=== PATIENT | male | born 1965 | race Caucasian/White ===

== ENCOUNTER 2019-07-13 06:11 | Day surgery (SDC) | payer OTHER, BC ==
[2019-07-12 16:40] VITALS: BMI 33.5
[2019-07-13] MEDS ORDERED: KETOROLAC TROMETHAMINE 30 MG/1 ML VIAL ONE ×2 (07:11→08:28)
[2019-07-13] MEDS ORDERED: DEXAMETHASONE SOD PHOSPHATE 4 MG/1 ML VIAL ONE (07:11)
[2019-07-13] MEDS ORDERED: PROPOFOL 20 ML ONE ×3 (07:12→07:13)
[2019-07-13] MEDS ORDERED: MIDAZOLAM HCL 2 MG/2 ML SINGLE DOSE VIAL ONE ×3 (07:12→07:31)
[2019-07-13] MEDS ORDERED: SUCCINYLCHOLINE CHLORIDE 200 MG/10 ML SYRINGE ONE (07:12)
[2019-07-13] MEDS ORDERED: ePHEDrine SULFATE 50 MG/1 ML AMPULE ONE (07:12)
[2019-07-13] MEDS ORDERED: ONDANSETRON 4 MG/2 ML VIAL IVPUSH PRN (07:40)
[2019-07-13] MEDS ORDERED: oxyCODONE HCL 5 MG TABLET PO PRN ×3 (07:40→08:51)
[2019-07-13] MEDS ORDERED: LACTATED RINGERS SOLUTION 1,000 ML IV SCH (07:45)
[2019-07-13] MEDS ORDERED: ceFAZolin SODIUM 1 GM VIAL IVPB ONE (07:53)
[2019-07-13] MEDS ORDERED: GENTAMICIN 80MG PREMIX BAG IVPB ONE (07:54)
[2019-07-13] MEDS ORDERED: FUROSEMIDE 40 MG/4 ML INJECTABLE VIAL ONE (08:07)
[2019-07-13] MEDS ORDERED: IOHEXOL 300 MG/ML INFUS..BTL IV ONE ×2 (08:26)
[2019-07-13] MEDS ORDERED: SODIUM CHLORIDE 0.9% P/F 10 ML VIAL IJ ONE (08:28)
[2019-07-13] MEDS ORDERED: ceFAZolin SODIUM 1 GM VIAL ONE (08:28)
[2019-07-13] MEDS ORDERED: GENTAMICIN SO4 80 MG/2 ML VIAL ONE (08:28)
--- NOTE | 2019-07-13 08:53 | OP ---
Operative Note - Note: Operative Date: 07/13/19 Pre-Operative Diagnosis: LK stone Post-Operative Diagnosis: Same as Pre-op Surgeon: Adalid Abdi Anesthesia: General Operative Report Dictated: Yes
[2019-07-13] MEDS ORDERED: ELECTROLYTE-148 SOLN 1,000 ML IV SCH (09:00)
--- NOTE | 2019-07-13 09:34 | OP ---
DATE OF OPERATION: 07/13/2019 PREOPERATIVE DIAGNOSIS: Large left kidney stone. POSTOPERATIVE DIAGNOSIS: Large left kidney stone. PROCEDURE: Cystoscopy, left ureteroscopy, laser lithotripsy, stent placement. SURGEON: Tri Garcia MD INDICATION: Patient is a 53-year-old male recently noted to have a 1.8-cm left kidney stone, taken to the OR for ureteroscopy, laser lithotripsy. After risks, benefits, and alternatives were discussed, patient elected to undergo the procedure. He was taken to the OR, placed supine on the operating table. After cardiac monitoring had been administered and general anesthesia established, he was prepped and draped in dorsal lithotomy position. He was given 2 g of Ancef and 1 mL of gentamicin. The cystoscope was introduced without difficulty. Anterior urethra was normal. Prostatic urethra was 3 cm and visually occlusive. The bladder was visualized. No tumors or stones noted in the bladder. Attention was turned to the left ureteral orifice. This was intubated with ureteral catheter. Contrast was injected for a retrograde pyelogram. There was mild hydronephrosis secondary to a radiolucent stone at the UPJ. So, the stone could not be seen on plain fluoroscopy, but when you gave contrast, you could see the large filling defect consistent with the stone. Guidewire was advanced into the left renal pelvis. Over the guidewire, a dual-lumen catheter was advanced, and a second guidewire was advanced as a safety wire. Over the working wire, a flexible ureteroscope was advanced into the renal pelvis, and the stone was visualized approximately 2 cm in size in the renal pelvis. Using the 365-micron laser fiber, the stone was pulverized into fine dust and 1- to 2-mm fragments until the entire stone burden was fragmented. Repeat ureteroscopy revealed no evidence of any residual large stone fragments within the renal pelvis or the calyces. Entire ureter was inspected. No stones were noted in the ureter either. Ureteroscope was then removed, and a 7-Slov[place], 24-cm, double-pigtail stent was then advanced in the monorail fashion. Fluoroscopy confirmed the stent to be in good position. Patient was awoken from anesthesia and transferred to recovery room in stable condition. There were no complications. Estimated blood loss was minimal. TRI GARCIA M.D. [id number]
[2019-07-13] MEDS ORDERED: oxyCODONE HCL 5 MG TABLET ONE (10:20)
[2019-07-13 10:54] VITALS: PULSE 70
[2019-07-13 12:01] VITALS: BP 130/70; TEMP 98
== END 2019-07-13 11:40 | disposition home or self-care (01) ==
LOC: JASU-SURG 06:11
PROVIDERS: ATTEND Urology
PROC: 0TF48ZZ Fragmentation in Left Kidney Pelvis, Via Natural or Artificial Opening Endoscopic (ICD-10-PCS; principal; 2019-07-13 08:00)
PROC: 0T778DZ Dilation of Left Ureter with Intraluminal Device, Via Natural or Artificial Opening Endoscopic (ICD-10-PCS; 2019-07-13 08:00)
DX: N20.0 Calculus of kidney (principal)
CPT/HCPCS: 76000-TC-FY; 94760

== ENCOUNTER 2020-03-12 06:04 | Day surgery (SDC) | payer OTHER, BC ==
[2020-03-11 13:50] VITALS: BMI 33.4
[2020-03-12] MEDS ORDERED: MIDAZOLAM HCL 2 MG/2 ML SINGLE DOSE VIAL ONE (07:33)
[2020-03-12] MEDS ORDERED: PROPOFOL 20 ML ONE ×3 (07:33)
[2020-03-12] MEDS ORDERED: SUCCINYLCHOLINE CHLORIDE 200 MG/10 ML SYRINGE ONE (07:33)
[2020-03-12] MEDS ORDERED: ceFAZolin SODIUM 1 GM VIAL IVPB ONE (07:50)
[2020-03-12] MEDS ORDERED: ceFAZolin SODIUM 1 GM VIAL ONE (07:51)
[2020-03-12] MEDS ORDERED: KETOROLAC TROMETHAMINE 30 MG/1 ML VIAL ONE (07:51)
[2020-03-12] MEDS ORDERED: DEXAMETHASONE SOD PHOSPHATE 4 MG/1 ML VIAL ONE (07:51)
[2020-03-12] MEDS ORDERED: oxyCODONE HCL 5 MG TABLET PO PRN (07:57)
[2020-03-12] MEDS ORDERED: LIDOCAINE HCL/PF 2% SDV 5ML VIAL ONE (07:58)
--- NOTE | 2020-03-12 07:59 | OP ---
Operative Note - Note: Operative Date: 03/12/20 Pre-Operative Diagnosis: LK stone Operation: ESWL Post-Operative Diagnosis: Same as Pre-op Surgeon: Adalid Abdi Anesthesia: General Operative Report Dictated: Yes
[2020-03-12] MEDS ORDERED: DEXTROSE 5%-0.45% SALINE 1,000 ML IV SCH (08:00)
[2020-03-12] MEDS ORDERED: KETAMINE HCL 200 MG/20 ML VIAL ONE (08:01)
[2020-03-12 09:32] VITALS: BP 146/80; PULSE 62; TEMP 97.5
--- NOTE | 2020-03-12 10:42 | OP ---
DATE OF OPERATION: 03/12/2020 PREOPERATIVE DIAGNOSIS: A 1-cm left kidney stone. POSTOPERATIVE DIAGNOSIS: A 1-cm left kidney stone. PROCEDURE: Extracorporeal shock wave lithotripsy (ESWL). SURGEON: Tri Garcia MD INDICATION: Patient is a 54-year-old male with history of recurrent nephrolithiasis. Recent imaging revealed a 1-cm stone in the left kidney. After review of treatment options, patient elected to undergo ESWL. Risks, benefits, alternatives were discussed. DESCRIPTION OF PROCEDURE: After informed consent was obtained, patient was taken to the OR and placed supine on the fluoroscopy table. Fluoroscopy and ultrasound were used to localize the 1-cm stone. The stone appeared mostly radiolucent. Ultrasound was used predominantly to localize the stone and follow the stone during treatment. After the stone was centered in the crosshairs, lithotripsy was commenced with a total of 2500 shocks delivered to the left kidney stone under continuous surveillance of ultrasound. At the completion of the procedure, the ultrasound images reflected fragmentation of the stone. Patient was then awoken from anesthesia and transferred to the recovery room in stable condition. There were no complications, no blood loss. TRI GARCIA M.D. [id number]
== END 2020-03-12 09:30 | disposition home or self-care (01) ==
LOC: JASU-SURG 06:04
PROVIDERS: ATTEND Urology
PROC: 0TF4XZZ Fragmentation in Left Kidney Pelvis, External Approach (ICD-10-PCS; principal; 2020-03-12 07:30)
DX: N20.0 Calculus of kidney (principal)